=== PATIENT | male | born 1945 | race Caucasian/White ===

== ENCOUNTER → 2023-04-09 | Outpatient (CLI) | payer MEDICARE | LOC: M RAD 17:11 | PROVIDERS: ATTEND Physician Assistant | DX: R07.81 Pleurodynia (principal); M79.601 Pain in right arm; J90 Pleural effusion, not elsewhere classified; J98.11 Atelectasis; S22.31XA Fracture of one rib, right side, initial encounter for closed fracture; W19.XXXA Unspecified fall, initial encounter; Y92.9 Unspecified place or not applicable; Y93.9 Activity, unspecified; Y99.9 Unspecified external cause status ==

== ENCOUNTER → 2023-04-15 | Outpatient (CLI) | payer MEDICARE | LOC: M RAD 18:50 | PROVIDERS: ATTEND Physician Assistant Medical | DX: S22.31XA Fracture of one rib, right side, initial encounter for closed fracture (principal); X58.XXXA Exposure to other specified factors, initial encounter; Y92.9 Unspecified place or not applicable; Y93.9 Activity, unspecified; Y99.9 Unspecified external cause status ==

== ENCOUNTER → 2024-08-31 | Outpatient (REF) | payer MEDICARE | LOC: M LAB REF 17:41 | PROVIDERS: ATTEND Podiatrist | DX: L03.031 Cellulitis of right toe (principal) ==